=== PATIENT | female | born 1980 | race African-American/Black ===

== ENCOUNTER 2023-05-10 08:03 | Emergency (ER) | payer BC ==
[~2023-05-10] VITALS: Ht 142.2 cm; Wt 68.0 kg
[2023-05-10] MEDS ORDERED: FOLIC ACID20 MG PO (08:18)
== END 2023-05-10 11:47 | disposition home or self-care (01) ==
LOC: ER 08:03
DX: M25.469 Effusion, unspecified knee (principal); S89.91XA Unspecified injury of right lower leg, initial encounter; X58.XXXA Exposure to other specified factors, initial encounter; Y93.56 Activity, jumping rope; Y92.9 Unspecified place or not applicable; Y99.9 Unspecified external cause status